=== PATIENT | female | born 1940 | race Caucasian/White ===

== ENCOUNTER → 2016-07-20 | Outpatient (CLI) | payer MEDICARE, OTHER ==
[~2016-07-20] MED LIST: ASA325 MG PO; BIOTIN5 M1 PO; COZAAR100 MG PO; CYANOCOBAL1000 MCG/1 IM; DAILY MULTIPLE1 EAC1 PO; HYDRODIURIL-DPS25 MG PO; LINZESS145 MCG PO; MIRALAX PACKET17 GM PO; OCCUVITE PO; OCUVITE SOFTGE1 EACH PO; OYSTER SHELL C500 MG PO; PROTONIX40 MG PO; SENOKOT DPS8.6 MG PO; SENOKOT8.6 MG PO; SYNTHROID DPS0.15 MG PO; SYNTHROID150 MCG PO; TYLENOL325 MG PO; ULTRAM50 MG PO; ZYRTEC DPS10 MG PO; ZYRTEC10 M3 PO
== END | disposition home or self-care (01) ==
LOC: RAD.S 08:52
DX: Z12.31 Encounter for screening mammogram for malignant neoplasm of breast (principal); M85.88 Other specified disorders of bone density and structure, other site; Z80.3 Family history of malignant neoplasm of breast

== ENCOUNTER → 2016-07-28 | Outpatient (CLI) | payer MEDICARE, OTHER | END | disposition home or self-care (01) | LOC: RAD.S 07-21 10:06 | DX: R92.2 Inconclusive mammogram (principal); N60.01 Solitary cyst of right breast ==